=== PATIENT | female | born 1990 | race Caucasian/White ===

== ENCOUNTER 2022-09-17 11:20 | Emergency (ER) | payer OTHER ==
[~2022-09-17] VITALS: Ht 165.1 cm; Wt 63.5 kg
[2022-09-17] MEDS ORDERED: IV NORMAL SALINE 1000 ML BAG IV ONE (12:45)
[2022-09-17] MEDS ORDERED: METOCLOPRAMIDE HCL 10 MG/2 ML VIAL IV ONE (12:45)
[2022-09-17] MEDS ORDERED: ACETAMINOPHEN ES 500 MG TABLET PO ONE (12:45)
[2022-09-17] MEDS ORDERED: diphenhydrAMINE 50 MG/1 ML VIAL IV ONE (12:45)
[2022-09-17] MEDS ORDERED: IBUP-1955 PO (12:56)
[2022-09-17] MEDS ORDERED: diphenhydrAMINE 50 MG/1 ML VIAL ONE (13:25)
[2022-09-17] MEDS ORDERED: ACETAMINOPHEN ES 500 MG TABLET ONE (13:25)
[2022-09-17] MEDS ORDERED: METOCLOPRAMIDE HCL 10 MG/2 ML VIAL ONE (13:25)
--- NOTE | 2022-09-17 13:50 | NUR ---
PT DOES NOT HAVE INFORMATION ABOUT HOME MEDICATION DOSAGES. HIS FRIEND IS GOING TO BRING HOME MEDICATION LATER.
[2022-09-17] MEDS ORDERED: KETOROLAC TROMETHAMINE 15 MG INJ ONE ×2 (14:00→14:05)
[2022-09-17] MEDS ORDERED: KETOROLAC TROMETHAMINE 15 MG INJ IVP ONE (14:00)
--- NOTE | 2022-09-17 14:19 | NUR ---
Patient discharged to home in stable condition. Written and verbal after care instructions given. Patient verbalizes understanding of instructions. Stressed follow up or return to ER for worsening s/s.
[2022-09-17 14:20] VITALS: BP 125/79
[2022-09-17 14:21] LABS: *URINE HCG, QUAL NEG (NEGATIVE)
== END 2022-09-17 14:21 | disposition home or self-care (01) ==
LOC: ER 11:20
DX: S09.90XA Unspecified injury of head, initial encounter (principal); R51.9 Headache, unspecified; W20.8XXA Other cause of strike by thrown, projected or falling object, initial encounter; Y93.89 Activity, other specified; Y92.511 Restaurant or cafe as the place of occurrence of the external cause; Y99.0 Civilian activity done for income or pay
CPT/HCPCS: 99284; 96374; 70450; 96375; 84703; J1200; J1885 ×2; J2765; J7040; A4663; A9150